=== PATIENT | male | born 1955 | race Caucasian/White ===

== ENCOUNTER 2021-10-06 20:06 | Inpatient (IN) | payer BC, OTHER ==
[~2021-10-06] VITALS: Ht 175.3 cm; Wt 87.6 kg
[2021-10-06 21:17] LABS: Basophils # (auto) 0.3 10 ^3/uL (0-0.2); Basophils % (auto) 1.3 % (0.0-2.0); Eosinophils # (auto) 0.1 10 ^3/uL (0-0.8); Eosinophils % (auto) 0.7 % (0.0-7.0); Hematocrit 46.5 % (41.0-53.0); Lymphocytes # (auto) 0.6 10 ^3/uL (0.4-5.4); Lymphocytes % (auto) 2.9 % (10.0-50.0); Mean Corpuscular Hemoglobin 29.8 pg (28.0-32.0); Mean Corpuscular Hgb Conc. 32.3 g/dL (32.0-36.0); Monocytes # (auto) 0.6 10 ^3/uL (0-1.3); Monocytes % (auto) 3.3 % (0.0-12.0); Neutrophils # (auto) 18.1 10 ^3/uL (1.6-8.6); Neutrophils % (auto) 91.8 % (37.0-80.0); Red Blood Cells 5.05 10^6/uL (4.5-5.90); White Blood Cell 19.7 10^3/uL (4.4-10.8)
[2021-10-06 21:34] LABS: Albumin 3.3 g/dL (3.4-5.0); BUN/Creatinine Ratio 7.8; Calcium 8.4 mg/dL (8.5-10.1); Potassium 3.7 mmol/L (3.5-5.1)
[2021-10-06 21:43] LABS: Bilirubin, Total 0.3 mg/dL (0.2-1.0); Total Protein 7.3 g/dL (6.4-8.2)
[2021-10-06] MEDS ORDERED: IOHEXOL 350 MG/ML 100ML IJ ONE (21:57)
[2021-10-06] MEDS ORDERED: dilTIAZem 25 MG/5 ML VIAL IV ONE ×3 (22:45→23:45)
[2021-10-06] MEDS ORDERED: cefTRIAXone SOD 1,000 MG VL IV ONE (22:45)
[2021-10-06] MEDS ORDERED: AZITHROMYCIN 500MG/ 250ML 250 ML IV ONE (22:45)
[2021-10-06] MEDS ORDERED: dilTIAZem 125mg/125ml BAG KIT 125 ML IV ONE (23:49)
[2021-10-07 00:41] LABS: Urine Bacteria NONE SEEN /hpf (None Seen); Urine Blood Negative /uL (Negative); Urine Mucus FEW (None Seen); Urine Specific Gravity < 1.050 (1.001-1.035); Urine WBC 1 /hpf (0 - 3)
[2021-10-07] MEDS ORDERED: ONDANSETRON HCL 4 MG/2 ML VIAL IV PRN (01:30)
[2021-10-07] MEDS ORDERED: DOCUSATE SOD 100 MG CAP PO PRN (01:30)
[2021-10-07] MEDS ORDERED: ACETAMINOPHEN 325 MG TAB PO PRN (01:30)
[2021-10-07] MEDS ORDERED: HYDROcodone-ACET 5/325MG TAB PO PRN (01:30)
[2021-10-07] MEDS ORDERED: NITROGLYCERIN 0.4 MG SL TAB SL PRN (02:45)
[2021-10-07] MEDS ORDERED: MORPHINE SULFATE INJ 2 MG/ml SYRG IV PRN (02:45)
[2021-10-07] MEDS: SODIUM CHLOR 0.9% PF (SALINE LOCK) 10ML VIAL/SYR IV SCH ×3 (06:21→22:14)
[2021-10-07 06:42] LABS: Basophils # (auto) 0.1 10 ^3/uL (0-0.2); Basophils % (auto) 0.3 % (0.0-2.0); Eosinophils # (auto) 0.2 10 ^3/uL (0-0.8); Eosinophils % (auto) 1.4 % (0.0-7.0); Hematocrit 44.9 % (41.0-53.0); Hemoglobin 14.5 g/dL (13.5-17.5); Lymphocytes # (auto) 0.9 10 ^3/uL (0.4-5.4); Lymphocytes % (auto) 5.3 % (10.0-50.0); Mean Corpuscular Hemoglobin 29.5 pg (28.0-32.0); Mean Corpuscular Hgb Conc. 32.2 g/dL (32.0-36.0); Mean Corpuscular Volume 91.7 fL (80.0-100.0); Monocytes # (auto) 0.8 10 ^3/uL (0-1.3); Monocytes % (auto) 4.7 % (0.0-12.0); Neutrophils # (auto) 15.5 10 ^3/uL (1.6-8.6); Neutrophils % (auto) 88.3 % (37.0-80.0); Nucleated Red Blood Cells % 0.1 %; Red Cell Distribution Width 15.8 % (11.8-14.3); White Blood Cell 17.6 10^3/uL (4.4-10.8)
[2021-10-07 07:00] LABS: Albumin 2.9 g/dL (3.4-5.0); Calcium 8.3 mg/dL (8.5-10.1); Potassium 4.7 mmol/L (3.5-5.1)
[2021-10-07 07:03] LABS: BUN/Creatinine Ratio 9.6
[2021-10-07 07:05] LABS: Bilirubin, Total 0.8 mg/dL (0.2-1.0); Total Protein 6.5 g/dL (6.4-8.2)
[2021-10-07] MEDS ORDERED: cefTRIAXone 1GM/50ML D5W 50 ML IV SCH ×2 (09:00→21:00)
[2021-10-07] MEDS ORDERED: FAMOTIDINE (10MG/ML) 2ML VL IV SCH (10:00)
[2021-10-07] MEDS: APIXABAN 2.5 MG TAB PO SCH ×2 (10:33→22:07)
[2021-10-07] MEDS: ASPirin 81 mg TAB PO SCH (10:34)
[2021-10-07] MEDS: AMIODARONE HCL 200 MG TAB PO SCH ×2 (10:34→22:08)
[2021-10-07] MEDS ORDERED: HYDR-4798 PO (16:00)
[2021-10-07 21:31] LABS: Alcohol, Urine < 3.0 mg/dL (0-10); Amphetamine Screen, Urine POSITIVE (NEGATIVE); Barbiturate Scree,Urine NEGATIVE (NEGATIVE); Benzodiazephine Screen, Urine NEGATIVE (NEGATIVE); Cannabinoid Screen, Urine NEGATIVE (NEGATIVE); Cocaine Screen, Urine NEGATIVE (NEGATIVE); Opiate Scree,Urine NEGATIVE (NEGATIVE); Phencyclidine Screen, Urine NEGATIVE (NEGATIVE)
[2021-10-07 22:00] VITALS: BP 118/77
[2021-10-07] MEDS ORDERED: AZITHROMYCIN 500MG/ 250ML 250 ML IV SCH (22:00)
[2021-10-07] MEDS ORDERED: ATORVASTATIN 20 MG TAB PO SCH (22:00)
[2021-10-08 05:00] VITALS: BP 122/69
[2021-10-08 06:36] LABS: Basophils # (auto) 0.1 10 ^3/uL (0-0.2); Eosinophils # (auto) 0.3 10 ^3/uL (0-0.8); Eosinophils % (auto) 3.1 % (0.0-7.0); Hemoglobin 15.8 g/dL (13.5-17.5); Lymphocytes # (auto) 1.1 10 ^3/uL (0.4-5.4); Lymphocytes % (auto) 12.7 % (10.0-50.0); Mean Corpuscular Hemoglobin 29.6 pg (28.0-32.0); Mean Corpuscular Hgb Conc. 32.4 g/dL (32.0-36.0); Mean Corpuscular Volume 91.6 fL (80.0-100.0); Monocytes # (auto) 0.6 10 ^3/uL (0-1.3); Neutrophils # (auto) 6.7 10 ^3/uL (1.6-8.6); Neutrophils % (auto) 76.2 % (37.0-80.0); Nucleated Red Blood Cells % 0.1 %; Red Blood Cells 5.34 10^6/uL (4.5-5.90); Red Cell Distribution Width 15.9 % (11.8-14.3); White Blood Cell 8.8 10^3/uL (4.4-10.8)
[2021-10-08 06:46] LABS: Albumin 3.1 g/dL (3.4-5.0); Calcium 8.9 mg/dL (8.5-10.1)
[2021-10-08 06:49] LABS: BUN/Creatinine Ratio 15.2; Bilirubin, Total 0.4 mg/dL (0.2-1.0); Total Protein 7.4 g/dL (6.4-8.2)
[2021-10-08] MEDS ORDERED: ALBUTEROL SULF 2.5 MG/0.5ML(0.5%) NEB SOLN NEB PRN (08:15)
[2021-10-08] MEDS: APIXABAN 2.5 MG TAB PO SCH (08:27)
[2021-10-08] MEDS: ASPirin 81 mg TAB PO SCH (08:27)
[2021-10-08] MEDS: AMIODARONE HCL 200 MG TAB PO SCH (08:27)
[2021-10-08 09:00] VITALS: BP 124/56
[2021-10-08] MEDS ORDERED: APIX2.5T PO (11:59)
[2021-10-08] MEDS ORDERED: METO25TA5 PO (11:59)
[2021-10-08] MEDS ORDERED: DOXY-286 PO (11:59)
[2021-10-08] MEDS ORDERED: AMIO200T4 PO (11:59)
[2021-10-08] MEDS ORDERED: ATOR20TA50 PO (11:59)
[2021-10-08 13:00] VITALS: BP 132/82
[2021-10-08] MEDS: SODIUM CHLOR 0.9% PF (SALINE LOCK) 10ML VIAL/SYR IV SCH (13:02)
[2021-10-08 15:28] VITALS: BP 132/82
[2021-10-08 17:20] VITALS: BP 134/79
== END 2021-10-08 17:46 | disposition home health service (06) | DRG 308 ==
LOC: EDBD 20:06 → ER 20:06 → TELE 10-07 02:46 → TELE-CENTR 10-07 16:08
PROVIDERS: ADMIT Nurse Practitioner Family; ATTEND Hospitalist
DX: I48.91 Unspecified atrial fibrillation (principal); J18.9 Pneumonia, unspecified organism; J96.01 Acute respiratory failure with hypoxia; J44.0 Chronic obstructive pulmonary disease with (acute) lower respiratory infection; G62.9 Polyneuropathy, unspecified; E78.5 Hyperlipidemia, unspecified; I10 Essential (primary) hypertension; Z79.01 Long term (current) use of anticoagulants; F15.90 Other stimulant use, unspecified, uncomplicated; Z20.822 Contact with and (suspected) exposure to COVID-19; Z87.891 Personal history of nicotine dependence
CPT/HCPCS: 36415; 36600; 71045; 71275; 80053; 80307; 81001; 82805; 84484; 85025; 87040; 93005; 96365; 96375; G0378; J0696; J3490

== ENCOUNTER → 2022-04-25 | Emergency (ER) | payer BC, OTHER ==
[~2022-04-25] VITALS: Ht 185.4 cm; Wt 90.7 kg
[~2022-04-25] MED LIST: AMIO200T4 PO; APIX2.5T PO; ATOR20TA50 PO; DOXY-286 PO; HYDR-4798 PO; METO25TA5 PO
[2022-04-25 18:01] VITALS: BP 108/86
[2022-04-25 18:48] LABS: Urine Bacteria NONE SEEN /hpf (None Seen); Urine Blood Negative /uL (Negative); Urine Mucus FEW (None Seen); Urine Specific Gravity 1.022 (1.001-1.035); Urine WBC <1 /hpf (0 - 3)
== END | disposition left against medical advice (07) ==
LOC: ER 17:39
DX: R10.2 Pelvic and perineal pain (principal); Z53.21 Procedure and treatment not carried out due to patient leaving prior to being seen by health care provider
CPT/HCPCS: 81001

== ENCOUNTER 2022-04-26 19:34 | Emergency (ER) | payer OTHER ==
[~2022-04-26] VITALS: Ht 185.4 cm; Wt 90.7 kg
[2022-04-26 21:12] LABS: Urine Bacteria NONE SEEN /hpf (None Seen); Urine Blood Negative /uL (Negative); Urine Mucus FEW (None Seen); Urine Specific Gravity 1.026 (1.001-1.035); Urine WBC 1 /hpf (0 - 3)
[2022-04-26 22:54] LABS: Basophils # (auto) 0 10 ^3/uL (0-0.2); Basophils % (auto) 0.2 % (0.0-2.0); Eosinophils # (auto) 0.3 10 ^3/uL (0-0.8); Eosinophils % (auto) 2.5 % (0.0-7.0); Hematocrit 45.5 % (41.0-53.0); Hemoglobin 15.7 g/dL (13.5-17.5); Lymphocytes % (auto) 16.9 % (10.0-50.0); Mean Corpuscular Hemoglobin 32.6 pg (28.0-32.0); Mean Corpuscular Hgb Conc. 34.4 g/dL (32.0-36.0); Mean Corpuscular Volume 94.7 fL (80.0-100.0); Neutrophils # (auto) 8.3 10 ^3/uL (1.6-8.6); Neutrophils % (auto) 71.4 % (37.0-80.0); Nucleated Red Blood Cells % 0.1 %; Red Cell Distribution Width 13.7 % (11.8-14.3); White Blood Cell 11.6 10^3/uL (4.4-10.8)
[2022-04-26 23:11] LABS: Albumin 3.5 g/dL (3.4-5.0); BUN/Creatinine Ratio 11.8; Calcium 9.4 mg/dL (8.5-10.1); Potassium 4.3 mmol/L (3.5-5.1)
[2022-04-26 23:14] LABS: Bilirubin, Total 0.3 mg/dL (0.2-1.0)
[2022-04-27] MEDS ORDERED: ONDANSETRON ODT 4 MG TAB PO ONE (02:00)
[2022-04-27] MEDS ORDERED: HYDROcodone-ACET 10/325MG TAB PO ONE (02:00)
[2022-04-27 02:04] VITALS: BP 130/85
== END 2022-04-27 02:15 | disposition home or self-care (01) ==
LOC: ER 19:34
DX: R10.2 Pelvic and perineal pain (principal); E78.5 Hyperlipidemia, unspecified; I10 Essential (primary) hypertension; F10.90 Alcohol use, unspecified, uncomplicated; Z98.890 Other specified postprocedural states; Z79.899 Other long term (current) drug therapy
CPT/HCPCS: 36415; 74176; 80053; 81001; 83690; 85025; 99284; Q0162